=== PATIENT | female | born 1980 | race Caucasian/White ===

== ENCOUNTER 2022-02-15 13:43 | Emergency (ER) | payer BC, SELFPAY ==
[2022-02-15 13:44] VITALS: BP 150/70; PULSE 61; RESP 16; TEMP 36.4; O2SAT 100; BMI 22.5
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
[2022-02-15 16:35] VITALS: BP 134/78; PULSE 66; RESP 16; TEMP 36.9; O2SAT 98
== END 2022-02-15 16:36 | disposition home or self-care (01) ==
PROVIDERS: Emergency Provider Emergency Medicine; Visit Provider Emergency Medicine
DX: Z04.1 Encounter for examination and observation following transport accident (principal); M25.512 Pain in left shoulder
CPT/HCPCS: 73030; 99282